=== PATIENT | female | born 1950 | race African-American/Black ===

== ENCOUNTER 2018-03-23 10:39 | Inpatient (IN) | payer OTHER ==
[2018-03-23 12:15] VITALS: BMI 24.0
--- NOTE | 2018-03-23 13:33 | HP ---
CIWA Score Nausea/Vomitin Muscle Tremors: 3 Anxiety: 2 Agitation: 3 Paroxysmal Sweats: 2 Orientation: 0-Oriented Tacttile Disturbances: 0-None Auditory Disturbances: 0-None Visual Disturbances: 0-None Headache: 2-Mild CIWA-Ar Total Score: 14 - Admission Criteria OASAS Guidelines: Admission for Medically Managed Detox: Requires at least one of the followin. CIWA greater than 12 2. Seizures within the past 24 hours 3. Delirium tremens within the past 24 hours 4. Hallucinations within the past 24 hours 5. Acute intervention needed for co occurring medical disorder 6. Acute intervention needed for co occurring psychiatric disorder 7. Severe withdrawal that cannot be handled at a lower level of care (continued vomiting, continued diarrhea, abnormal vital signs) requiring intravenous medication and/or fluids 8. Admission ROS [facility] Chief Complaint: ETOH WITHDRAWAL SX AND COCAINE DEPENDENCE. Allergies/Adverse Reactions: Allergies Allergy/AdvReac Type Severity Reaction Status Date / Time fluconazole Allergy Severe Hives Verified 03/23/18 12:30 sulfamethoxazole Allergy Severe Hives Verified 03/23/18 12:30 [From Bactrim] trimethoprim [From Bactrim] Allergy Severe Hives Verified 03/23/18 12:30 History of Present Illness: PATIENT PRESENTS FOR ETOH WITHDRAWAL SX AND COCAINE DEPENDENCE. PATIENT STARTED DRINKING AT AGE 9 AND LAST DRINK 2-3 HOURS AGO TODAY. PATIENT DRINKS 15 (16 OUNCE BEERS DAILY) MIXED WITH VODKA. ALSO HAS HX OF SMOKING COCAINE, ONCE IN A WHILE WHEN AVAILABLE. +HX OF BLACKOUTS, FALLS. DENIES H/O SEIZURES. PATIENT IS A PATIENT AT [facility], RELAPSED 2 MONTHS AGO. PREVIOUS DETOX ADMISSION IN 2011. PATIENT PMH INCLUDES HIV+( COMPLIANT WITH MEDICATION AND HAS OWN MEDS), HIP PAIN AND DEPRESSION/ANXIETY. DENIES SI/HI, +SUICIDE ATTEMPTS BY CUTTING WRISTS, YEARS AGO. Exam Limitations: No Limitations - Ebola screening Have you traveled outside of the country in the last 21 days: No Have you had contact with anyone from an Ebola affected area: No Have you been sick,other than usual withdrawal symptoms: No Do you have a fever: No - Review of Systems Constitutional: Night Sweats, Changes in sleep EENT: reports: No Symptoms Reported Respiratory: reports: No Symptoms reported Cardiac: reports: No Symptoms Reported GI: reports: Diarrhea, Nausea, Poor Appetite, Poor Fluid Intake, Abdominal cramping : reports: No Symptoms Reported Musculoskeletal: reports: Back Pain, Joint Pain Integumentary: reports: Sweating Neuro: reports: Headache, Numbness, Tingling, Tremors Endocrine: reports: No Symptoms Reported Hematology: reports: No Symptoms Reported Psychiatric: reports: Orientated x3, Anxious, Depressed Patient History - Patient Medical History Hx Anemia: Yes Hx Asthma: No Hx Chronic Obstructive Pulmonary Disease (COPD): No Hx Cancer: No Hx Cardiac Disorders: Yes (Angina) Hx Congestive Heart Failure: No Hx Hypertension: No Hx Hypercholesterolemia: No Hx Pacemaker: No HX Cerebrovascular Accident: No Hx Seizures: No Hx Dementia: No Hx Diabetes: No Hx Gastrointestinal Disorders: No Hx Liver Disease: No Hx Genitourinary Disorders: No Hx Sexually Transmitted Disorders: Yes (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) Hx Renal Disease (ESRD): No Hx Thyroid Disease: No Hx Human Immunodeficiency Virus (HIV): Yes (since 1994) Hx Depression: Yes Hx Suicide Attempt: Yes (3 times by cuttig wrist) Hx Bipolar Disorder: Yes Hx Schizophrenia: No - Patient Surgical History Past Surgical History: Yes Hx Neurologic Surgery: No Hx Cataract Extraction: No Hx Cardiac Surgery: No Hx Lung Surgery: No Hx Breast Surgery: No Hx Breast Biopsy: No Hx Abdominal Surgery: No Hx Appendectomy: No Hx Cholecystectomy: No Hx Genitourinary Surgery: No Hx Section: No Hx Orthopedic Surgery: No Hx Hysterectomy: No Other Surgical History: tonsillectomy at age of [age] years old Anesthesia Reaction: No - PPD History Previous Implant?: Yes Documented Results: Negative w/o proof Date: 03/20/12 PPD to be Administered?: Yes - Reproductive History Patient : No - Smoking Cessation Smoking history: Current every day smoker Have you smoked in the past 12 months: Yes Aproximately how many cigarettes per day: 10 Cigars Per Day: 0 Hx Chewing Tobacco Use: No Initiated information on smoking cessation: Yes 'Breaking Loose' booklet given: 03/23/18 - Substance & Tx. History Hx Alcohol Use: Yes Hx Substance Use: Yes Substance Use Type: Alcohol, Cocaine - Substances Abused Alcohol Route: Oral Frequency: Daily Amount used: 2 pints of vodka, 20 16oz cans of beers Age of first use: 9 Date of Last Use: 03/23/18 Cocaine Route: Smoking Frequency: Daily Amount used: 5 bags Age of first use: 19 Date of Last Use: 03/21/18 Family Disease History - Family Disease History Family Disease History: Other: Father (ALCOHOLISM, ), Sister (, ALCOHOLISM) Admission Physical Exam [facility] - Vital Signs Vital Signs: Vital Signs - 24 hr 03/23/18 12:10 Temperature 97.0 F L Pulse Rate 91 H Respiratory 20 Rate Blood Pressure 105/69 - Physical General Appearance: Yes: No Apparent Distress, Nourished, Appropriately Dressed , Tremorous, Anxious HEENTM: Yes: EOMI, Hearing grossly Normal, Normal ENT Inspection, Normocephalic , Normal Voice, DARIAN, Pharynx Normal Respiratory: Yes: Chest Non-Tender, Lungs Clear, Normal Breath Sounds, No Respiratory Distress, No Accessory Muscle Use Neck: Yes: No masses,lesions,Nodules, Supple, Trachea in good position Breast: Yes: Breast Exam Deferred Cardiology: Yes: Regular Rhythm, Regular Rate, S1, S2 Abdominal: Yes: Normal Bowel Sounds, Non Tender, Soft Genitourinary: Yes: Within Normal Limits Back: Yes: Normal Inspection, Muscle Spasm Musculoskeletal: Yes: full range of Motion, Gait Steady, Joint Stiffness, Muscle Pain Extremities: Yes: Normal Inspection, Normal Range of Motion, Non-Tender, Tremors Neurological: Yes: child care centre director II-XII NML intact, Fully Oriented, Alert, Motor Strength 5/5, Normal Response, Numbness, Depressed Affect Integumentary: Yes: Normal Color, Warm, Moist Cleared for Admission [facility] - Detox or Rehab [facility] Level of Care: Medically Managed Detox Regimen/Protocol: Librium [facility] Breath Alcohol Content Breath Alcohol Content: 0 Urine Pregancy Test - Result Urine Test Results: Negative- NO Line Present Urine Drug Screen - Results Drug Screen Negative: No Urine Drug Screen Results: NITISH-Cocaine
[2018-03-23] MEDS ORDERED: guaiFENesin/D-METHORPHAN HB 10 ML UNIT-DOSE CUPS PO PRN (13:44)
[2018-03-23] MEDS ORDERED: MENTHOL/PHENOL 1 EACH UD MM PRN (13:44)
[2018-03-23] MEDS ORDERED: IBUPROFEN 400 MG TABLET (FP) PO PRN (13:44)
[2018-03-23] MEDS ORDERED: ACETAMINOPHEN 325 MG TABLET (FP) PO PRN (13:44)
[2018-03-23] MEDS ORDERED: MAGNESIUM CITRATE 300 ML BOTTLE PO PRN (13:44)
[2018-03-23] MEDS ORDERED: LOPERAMIDE HCL 2 MG CAPSULE PO PRN (13:44)
[2018-03-23] MEDS ORDERED: hydrOXYzine PAMOATE 50 MG CAPSULE (FP) PO PRN (13:44)
[2018-03-23] MEDS ORDERED: NICOTINE POLACRILEX 2 MG GUM BUC PRN (13:44)
[2018-03-23] MEDS ORDERED: MAG HYDROX/AL HYDROX/SIMETH 30 ML UNIT-DOSE CUP PO PRN (13:44)
[2018-03-23] MEDS ORDERED: P-EPHED 60MG/TRIPROLIDI 2.5MG TABLET PO PRN (13:44)
[2018-03-23] MEDS ORDERED: MAGNESIUM HYDROX 2400MG/30ML ORAL SUSPENSION 30 ML CUP PO PRN (13:44)
[2018-03-23] MEDS: chlordiazePOXIDE HCL 25 MG CAPSULE PO PRN (15:41)
--- NOTE | 2018-03-23 15:45 | EKG ---
Test Reason : Blood Pressure : / mmHG Vent. Rate : 079 BPM Atrial Rate : 079 BPM P-R Int : 136 ms QRS Dur : 102 ms QT Int : 404 ms P-R-T Axes : 068 047 069 degrees QTc Int : 463 ms NORMAL SINUS RHYTHM NORMAL ECG NO PREVIOUS ECGS AVAILABLE Confirmed by ARIE ESCOBAR, YOUSIF ([id number]) on 03/23/2018 3:44:53 PM Referred By: Confirmed By:YOUSIF SARGENT MD
[2018-03-23] MEDS: chlordiazePOXIDE HCL 25 MG CAPSULE PO SCH ×2 (17:24→22:15)
[2018-03-23] MEDS ORDERED: MELATONIN 5 MG TABLETS PO PRN (22:00)
[2018-03-23] MEDS: THIAMINE HCL 100 MG TABLET (FP) PO SCH (22:15)
[2018-03-23] MEDS: GABAPENTIN 300 MG CAPSULE (FP) PO SCH (22:15)
[2018-03-23 23:25] LABS: URINE APPEARANCE CLEAR; URINE BILIRUBIN NEGATIVE (<2.0 mg/dL); URINE COLOR LTYELLOW; URINE GLUCOSE (UA) NEGATIVE (NEGATIVE); URINE KETONE NEGATIVE (NEGATIVE); URINE LEUK ESTERASE 1+ (NEGATIVE); URINE NITRITE NEGATIVE (NEGATIVE); URINE PROTEIN NEGATIVE (NEGATIVE); URINE UROBILINOGEN NEGATIVE mg/dL (0.2-1.0)
[2018-03-23 23:29] LABS: EPI CELLS RARE /HPF (FEW); URINE MUCUS RARE
[2018-03-24] MEDS: chlordiazePOXIDE HCL 25 MG CAPSULE PO SCH ×4 (06:12→22:22)
--- NOTE | 2018-03-24 09:51 | CONSULT ---
[facility] Psychiatric Consult - Data Date of interview: 03/24/18 Admission source: [facility] Identifying data: Patient is a 68 year old single female, without children, unemployed, and is currently homeless. This is patient's first admission to detox at [facility]. Patient admitted to for alcohol and cocaine dependence. Substance Abuse History: Smoking Cessation. Smoking history: Current every day smoker. Have you smoked in the past 12 months: Yes. Aproximately how many cigarettes per day: 10. Cigars Per Day: 0. Hx Chewing Tobacco Use: No. Initiated information on smoking cessation: Yes. 'Breaking Loose' booklet given : 03/23/18. - Substance & Tx. History. Hx Alcohol Use: Yes. Hx Substance Use : Yes. Substance Use Type: Alcohol, Cocaine. - Substances Abused. Alcohol. Route: Oral. Frequency: Daily. Amount used: 2 pints of vodka, 20 16oz cans of beers. Age of first use: 9. Date of Last Use: 03/23/18. Cocaine. Route: Smoking. Frequency: Daily. Amount used: 5 bags. Age of first use: 19. Date of Last Use: 03/21/18 Medical History: Aneima, Angina, h/o syphyllis, tonsillectomy, HIV Psychiatric History: Patient reports h/o one psychiatric hospitalization in 2011 at [facility] for depression. Outpatient psychiatric services was provided at the [facility] one year ago. Patient reports h/o nonadherence to outpatient department. States she was prescribed trazodone, prozac, and zoloft. She has not accepted medication in one year. Patient reports h/o multiple suicide attempts. At present, she reports feeling tired and is requesting a low dose of trazodone for insomnia. Physical/Sexual Abuse/Trauma History: denies. Mental Status Exam - Mental Status Exam Alert and Oriented to: Time, Place, Person Cognitive Function: Good Patient Appearance: Well Groomed Mood: Euthymic Affect: Mood Congruent Patient Behavior: Cooperative Speech Pattern: Appropriate Voice Loudness: Moderately Soft/Quiet Thought Process: Intact, Goal Oriented Thought Disorder: Not Present Hallucinations: Denies Suicidal Ideation: Denies Homicidal Ideation: Denies Insight/Judgement: Poor Sleep: Poorly Appetite: Fair Muscle strength/Tone: Normal Gait/Station: Normal Psychiatric Findings - Problem List (Johnson 1, 2,3) (1) Alcohol dependence with uncomplicated withdrawal Current Visit: Yes Status: Acute (2) Cocaine dependence Current Visit: No Status: Chronic (3) Substance induced mood disorder Current Visit: Yes Status: Acute (4) Insomnia Current Visit: Yes Status: Acute - Initial Treatment Plan Initial Treatment Plan: Psychoeducation provided. Detoxification in progress. Trazodone 25mg qhs ordered. Benefits and side effects discussed. Verbal consent given.
[2018-03-24 10:10] LABS: HEMATOCRIT 35.5 % (32.4-45.2); HEMOGLOBIN 11.5 GM/dL (10.7-15.3); MCHC 32.4 g/dl (32.0-36.0); MEAN CELL VOLUME 77.1 fl (80-96); MEAN PLT VOLUME 9.6 fl (7.5-11.1); PLATELET COUNT 240 K/MM3 (134-434); RDW 14.8 % (11.6-15.6)
[2018-03-24] MEDS: PATIENT'S OWN MEDICATION (NON-FORMULARY) (Bictegrav/Emtricit/Tenofov Ala [Biktarvy 50-200- PO SCH (10:50)
[2018-03-24] MEDS: NICOTINE 14 MG/24 HOURS TOPICAL PATCH TD SCH (10:50)
[2018-03-24] MEDS: GABAPENTIN 300 MG CAPSULE (FP) PO SCH ×2 (10:50→21:44)
[2018-03-24] MEDS: ASPIRIN COATED 81 MG TABLET.EC PO SCH (10:50)
[2018-03-24] MEDS: PRENATAL VITAMINS W/ FOLIC ACID TABLET (FP) PO SCH (10:50)
[2018-03-24 11:16] LABS: ALBUMIN 2.7 g/dl (3.4-5.0); ALK PHOS 89 U/L (45-117); ANION GAP 6 MMOL/L (8-16); BILIRUBIN,TOTAL 0.2 mg/dL (0.2-1); BLOOD UREA NITROGEN 12 mg/dL (7-18); CALCIUM 8.4 mg/dL (8.5-10.1); CHLORIDE 108 mmol/L (98-107); CO2 28 mmol/L (21-32); CREATININE 0.8 mg/dL (0.55-1.3); GLUCOSE,RANDOM 90 mg/dL (74-106); POTASSIUM 3.9 mmol/L (3.5-5.1); SGOT/AST 24 U/L (15-37); SGPT/ALT 18 U/L (13-61); SODIUM 142 mmol/L (136-145); TOT PROT 6.6 g/dl (6.4-8.2)
[2018-03-24] MEDS ORDERED: FLU VACCINE QUAD 60 MCG/0.5 ML (MDV 18-19) IM ONE (12:00)
--- NOTE | 2018-03-24 15:35 | PN ---
[facility] CIWA - CIWA Score Nausea/Vomitin-Mild Nausea/No Vomiting Muscle Tremors: 4-Moderate,w/Arms Extend Anxiety: 2 Agitation: 3 Paroxysmal Sweats: 1-Minimal Palms Moist Orientation: 1-Uncertain about Date Tacttile Disturbances: 0-None Auditory Disturbances: 0-None Visual Disturbances: 0-None Headache: 0-None Present CIWA-Ar Total Score: 12 S Progress Note (SOAP) Subjective: tremor sweat trouble sleep at night restlessness Objective: 03/24/18 15:35 Vital Signs Temperature 97.4 F L 03/24/18 13:44 Pulse Rate 75 03/24/18 13:44 Respiratory Rate 18 03/24/18 13:44 Blood Pressure 101/66 03/24/18 13:44 O2 Sat by Pulse Oximetry (%) Laboratory Last Values WBC 4.0 K/mm3 (4.0-10.0) 03/24/18 07:00 RBC 4.60 M/mm3 (3.60-5.2) 03/24/18 07:00 Hgb 11.5 GM/dL (10.7-15.3) 03/24/18 07:00 Hct 35.5 % (32.4-45.2) 03/24/18 07:00 MCV 77.1 fl (80-96) L 03/24/18 07:00 MCH 25.0 pg (25.7-33.7) L 03/24/18 07:00 MCHC 32.4 g/dl (32.0-36.0) 03/24/18 07:00 RDW 14.8 % (11.6-15.6) D 03/24/18 07:00 Plt Count 240 K/MM3 (134-434) 03/24/18 07:00 MPV 9.6 fl (7.5-11.1) 03/24/18 07:00 Sodium 142 mmol/L (136-145) 03/24/18 07:00 Potassium 3.9 mmol/L (3.5-5.1) 03/24/18 07:00 Chloride 108 mmol/L (98-107) H 03/24/18 07:00 Carbon Dioxide 28 mmol/L (21-32) 03/24/18 07:00 Anion Gap 6 MMOL/L (8-16) L 03/24/18 07:00 BUN 12 mg/dL (7-18) 03/24/18 07:00 Creatinine 0.8 mg/dL (0.55-1.3) 03/24/18 07:00 Creat Clearance w eGFR > 60 (>60) 03/24/18 07:00 Random Glucose 90 mg/dL (74-106) 03/24/18 07:00 Calcium 8.4 mg/dL (8.5-10.1) L 03/24/18 07:00 Total Bilirubin 0.2 mg/dL (0.2-1) 03/24/18 07:00 AST 24 U/L (15-37) 03/24/18 07:00 ALT 18 U/L (13-61) 03/24/18 07:00 Alkaline Phosphatase 89 U/L (45-117) 03/24/18 07:00 Total Protein 6.6 g/dl (6.4-8.2) 03/24/18 07:00 Albumin 2.7 g/dl (3.4-5.0) L 03/24/18 07:00 Urine Color Ltyellow 03/23/18 23:10 Urine Appearance Clear 03/23/18 23:10 Urine pH 5.0 (5.0-8.0) D 03/23/18 23:10 Ur Specific [place] 1.009 (1.010-1.035) L 03/23/18 23:10 Urine Protein Negative (NEGATIVE) 03/23/18 23:10 Urine Glucose (UA) Negative (NEGATIVE) 03/23/18 23:10 Urine Ketones Negative (NEGATIVE) 03/23/18 23:10 Urine Blood Negative (NEGATIVE) 03/23/18 23:10 Urine Nitrite Negative (NEGATIVE) 03/23/18 23:10 Urine Bilirubin Negative (<2.0 mg/dL) 03/23/18 23:10 Urine Urobilinogen Negative mg/dL (0.2-1.0) 03/23/18 23:10 Ur Leukocyte Esterase 1+ (NEGATIVE) H 03/23/18 23:10 Urine WBC (Auto) 1 /hpf (3-5) 03/23/18 23:10 Urine RBC (Auto) <1 /hpf (0-3) 03/23/18 23:10 Ur Epithelial Cells Rare /HPF (FEW) 03/23/18 23:10 Urine Mucus Rare 03/23/18 23:10 lab noted Assessment: 03/24/18 15:36 withdrawal sx Plan: continue detox
[2018-03-24] MEDS: THIAMINE HCL 100 MG TABLET (FP) PO SCH (21:42)
[2018-03-24] MEDS: chlordiazePOXIDE HCL 25 MG CAPSULE PO PRN (21:43)
[2018-03-24] MEDS: traZODone HCL 50 MG TABLET (FP) PO SCH (21:43)
[2018-03-25] MEDS: chlordiazePOXIDE HCL 25 MG CAPSULE PO SCH ×2 (06:18→10:30)
[2018-03-25] MEDS: GABAPENTIN 300 MG CAPSULE (FP) PO SCH ×2 (10:29→22:20)
[2018-03-25] MEDS: PRENATAL VITAMINS W/ FOLIC ACID TABLET (FP) PO SCH (10:29)
[2018-03-25] MEDS: ASPIRIN COATED 81 MG TABLET.EC PO SCH (10:29)
[2018-03-25] MEDS: NICOTINE 14 MG/24 HOURS TOPICAL PATCH TD SCH (10:30)
[2018-03-25] MEDS: chlordiazePOXIDE HCL 25 MG CAPSULE PO PRN (10:30)
[2018-03-25] MEDS: PATIENT'S OWN MEDICATION (NON-FORMULARY) (Bictegrav/Emtricit/Tenofov Ala [Biktarvy 50-200- PO SCH (10:30)
--- NOTE | 2018-03-25 14:14 | PN ---
S CIWA - CIWA Score Nausea/Vomitin Muscle Tremors: 1-None Visible, but [place] Anxiety: 3 Agitation: 3 Paroxysmal Sweats: 1-Minimal Palms Moist Orientation: 0-Oriented Tacttile Disturbances: 2-Mild Itch/Numbness/Burn Auditory Disturbances: 0-None Visual Disturbances: 0-None Headache: 0-None Present CIWA-Ar Total Score: 12 BHS Progress Note (SOAP) Subjective: PATIENT C/O RESTLESSNESS, ANXIETY, BODY ACHES, SLEEP DISTURNBANCE AND NIGHT SWEATS. Objective: 03/25/18 14:11 Vital Signs Temperature 98.3 F 03/25/18 13:53 Pulse Rate 83 03/25/18 13:53 Respiratory Rate 18 03/25/18 13:53 Blood Pressure 98/65 03/25/18 13:53 O2 Sat by Pulse Oximetry (%) Laboratory Tests 03/23/18 03/24/18 03/24/18 23:10 07:00 07:00 WBC 4.0 RBC 4.60 Hgb 11.5 Hct 35.5 MCV 77.1 L MCH 25.0 L MCHC 32.4 RDW 14.8 D Plt Count 240 MPV 9.6 Sodium 142 Potassium 3.9 Chloride 108 H Carbon Dioxide 28 Anion Gap 6 L BUN 12 Creatinine 0.8 Creat Clearance w eGFR > 60 Random Glucose 90 Calcium 8.4 L Total Bilirubin 0.2 AST 24 ALT 18 Alkaline Phosphatase 89 Total Protein 6.6 Albumin 2.7 L Urine Color Ltyellow Urine Appearance Clear Urine pH 5.0 D Ur Specific [place] 1.009 L Urine Protein Negative Urine Glucose (UA) Negative Urine Ketones Negative Urine Blood Negative Urine Nitrite Negative Urine Bilirubin Negative Urine Urobilinogen Negative Ur Leukocyte Esterase 1+ H Urine WBC (Auto) 1 Urine RBC (Auto) <1 Ur Epithelial Cells Rare Urine Mucus Rare RPR Titer 03/24/18 07:00 WBC RBC Hgb Hct MCV MCH MCHC RDW Plt Count MPV Sodium Potassium Chloride Carbon Dioxide Anion Gap BUN Creatinine Creat Clearance w eGFR Random Glucose Calcium Total Bilirubin AST ALT Alkaline Phosphatase Total Protein Albumin Urine Color Urine Appearance Urine pH Ur Specific [place] Urine Protein Urine Glucose (UA) Urine Ketones Urine Blood Urine Nitrite Urine Bilirubin Urine Urobilinogen Ur Leukocyte Esterase Urine WBC (Auto) Urine RBC (Auto) Ur Epithelial Cells Urine Mucus RPR Titer Nonreactive PE: SKIN WARM, +MOIST PALMS ALERT AND ORIENTED X 3 EXT AMB AD STEPHANIA BUT GUARDED DUE TO BODY ACHES, NO EDEMA, MILD TREMORS ANXIOUS, IRRITABLE Assessment: 03/25/18 14:13 A/P; WITHDRAWAL SX Plan: CONTINUE DETOX ENCOURAGE ORAL FLUIDS CONTINUE TO MONITOR CLINICALLY CANE ORDERED FOR AMBULATION SUPPORT
[2018-03-25] MEDS: chlordiazePOXIDE 5 MG CAPSULE PO SCH ×2 (16:54→22:19)
[2018-03-25] MEDS: traZODone HCL 50 MG TABLET (FP) PO SCH (22:19)
[2018-03-25] MEDS: THIAMINE HCL 100 MG TABLET (FP) PO SCH (22:19)
[2018-03-26] MEDS: chlordiazePOXIDE 5 MG CAPSULE PO SCH ×2 (06:07→10:49)
[2018-03-26 06:24] VITALS: BP 93/62; PULSE 64; TEMP 98
[2018-03-26] MEDS: ASPIRIN COATED 81 MG TABLET.EC PO SCH (10:49)
[2018-03-26] MEDS: PRENATAL VITAMINS W/ FOLIC ACID TABLET (FP) PO SCH (10:49)
[2018-03-26] MEDS: PATIENT'S OWN MEDICATION (NON-FORMULARY) (Bictegrav/Emtricit/Tenofov Ala [Biktarvy 50-200- PO SCH (10:49)
[2018-03-26] MEDS: NICOTINE 14 MG/24 HOURS TOPICAL PATCH TD SCH (10:49)
[2018-03-26] MEDS: GABAPENTIN 300 MG CAPSULE (FP) PO SCH (10:49)
--- NOTE | 2018-03-26 11:29 | PN ---
[facility] Progress Note Note: PT SIGNED OUT AMA FOR PERSONAL REASONS AND STATES SHE WILL CALL [facility] [address] AND FOLLOW UP WITH HER MEDICAL PROVIDERS AT [facility] FOR MEDICAL MANAGEMENT. ALERT O X 3. NAD. Vital Signs 03/26/18 06:23 Temperature 98 F Pulse Rate 64 Respiratory 16 Rate Blood Pressure 93/62 Laboratory Tests 03/23/18 03/24/18 03/24/18 23:10 07:00 07:00 WBC 4.0 RBC 4.60 Hgb 11.5 Hct 35.5 MCV 77.1 L MCH 25.0 L MCHC 32.4 RDW 14.8 D Plt Count 240 MPV 9.6 Sodium 142 Potassium 3.9 Chloride 108 H Carbon Dioxide 28 Anion Gap 6 L BUN 12 Creatinine 0.8 Creat Clearance w eGFR > 60 Random Glucose 90 Calcium 8.4 L Total Bilirubin 0.2 AST 24 ALT 18 Alkaline Phosphatase 89 Total Protein 6.6 Albumin 2.7 L Urine Color Ltyellow Urine Appearance Clear Urine pH 5.0 D Ur Specific [place] 1.009 L Urine Protein Negative Urine Glucose (UA) Negative Urine Ketones Negative Urine Blood Negative Urine Nitrite Negative Urine Bilirubin Negative Urine Urobilinogen Negative Ur Leukocyte Esterase 1+ H Urine WBC (Auto) 1 Urine RBC (Auto) <1 Ur Epithelial Cells Rare Urine Mucus Rare RPR Titer 03/24/18 07:00 WBC RBC Hgb Hct MCV MCH MCHC RDW Plt Count MPV Sodium Potassium Chloride Carbon Dioxide Anion Gap BUN Creatinine Creat Clearance w eGFR Random Glucose Calcium Total Bilirubin AST ALT Alkaline Phosphatase Total Protein Albumin Urine Color Urine Appearance Urine pH Ur Specific [place] Urine Protein Urine Glucose (UA) Urine Ketones Urine Blood Urine Nitrite Urine Bilirubin Urine Urobilinogen Ur Leukocyte Esterase Urine WBC (Auto) Urine RBC (Auto) Ur Epithelial Cells Urine Mucus RPR Titer Nonreactive PLAN:PT SIGNED OUT AMA
--- NOTE | 2018-03-26 11:29 | DS ---
[facility] Detox Discharge Summary Admission Date: 03/23/18 Discharge Date: 03/26/18 - History Present History: Alcohol Dependence Pertinent Past History: PLEASE SEE DX BELOW - Physical Exam Results Vital Signs: Vital Signs Temperature 98 F 03/26/18 06:23 Pulse Rate 64 03/26/18 06:23 Respiratory Rate 16 03/26/18 06:23 Blood Pressure 93/62 03/26/18 06:23 O2 Sat by Pulse Oximetry (%) Pertinent Admission Physical Exam Findings: WITHDRAWAL SX Laboratory Tests 03/23/18 03/24/18 03/24/18 23:10 07:00 07:00 WBC 4.0 RBC 4.60 Hgb 11.5 Hct 35.5 MCV 77.1 L MCH 25.0 L MCHC 32.4 RDW 14.8 D Plt Count 240 MPV 9.6 Sodium 142 Potassium 3.9 Chloride 108 H Carbon Dioxide 28 Anion Gap 6 L BUN 12 Creatinine 0.8 Creat Clearance w eGFR > 60 Random Glucose 90 Calcium 8.4 L Total Bilirubin 0.2 AST 24 ALT 18 Alkaline Phosphatase 89 Total Protein 6.6 Albumin 2.7 L Urine Color Ltyellow Urine Appearance Clear Urine pH 5.0 D Ur Specific [place] 1.009 L Urine Protein Negative Urine Glucose (UA) Negative Urine Ketones Negative Urine Blood Negative Urine Nitrite Negative Urine Bilirubin Negative Urine Urobilinogen Negative Ur Leukocyte Esterase 1+ H Urine WBC (Auto) 1 Urine RBC (Auto) <1 Ur Epithelial Cells Rare Urine Mucus Rare RPR Titer 03/24/18 07:00 WBC RBC Hgb Hct MCV MCH MCHC RDW Plt Count MPV Sodium Potassium Chloride Carbon Dioxide Anion Gap BUN Creatinine Creat Clearance w eGFR Random Glucose Calcium Total Bilirubin AST ALT Alkaline Phosphatase Total Protein Albumin Urine Color Urine Appearance Urine pH Ur Specific [place] Urine Protein Urine Glucose (UA) Urine Ketones Urine Blood Urine Nitrite Urine Bilirubin Urine Urobilinogen Ur Leukocyte Esterase Urine WBC (Auto) Urine RBC (Auto) Ur Epithelial Cells Urine Mucus RPR Titer Nonreactive - Treatment Hospital Course: Discharged Condition Good - Medication Discharge Medications: Ambulatory Orders Aspirin [Aspirin EC] 81 mg PO DAILY 03/23/18 Bictegrav/Emtricit/Tenofov Ala [Biktarvy 50-200-25 mg Tablet] 1 each PO DAILY Fluoxetine HCl [Prozac -] 20 mg PO DAILY 12/05/18 Gabapentin 300 mg PO BID 03/23/18 Sertraline HCl [Zoloft -] 25 mg PO DAILY 03/23/18 traZODone HCL [Desyrel -] 150 mg PO HS 03/23/18 - Diagnosis (1) Alcohol dependence with uncomplicated withdrawal Current Visit: Yes Status: Acute (2) HIV positive Current Visit: Yes Status: Chronic (3) Peripheral neuropathic pain Current Visit: Yes Status: Chronic (4) Cocaine dependence Current Visit: Yes Status: Acute - AMA Did Patient Leave Against Medical Advice: Yes
[2018-03-26] MEDS ORDERED: chlordiazePOXIDE HCL 10 MG CAPSULE PO SCH (17:00)
== END 2018-03-26 10:04 | disposition left against medical advice (07) | DRG 894 ==
LOC: YASAS 10:39 → Y3N 14:26
PROC: HZ2ZZZZ Detoxification Services for Substance Abuse Treatment (ICD-10-PCS; principal; 2018-03-23)
DX: F10.230 Alcohol dependence with withdrawal, uncomplicated (principal); F14.20 Cocaine dependence, uncomplicated; F31.9 Bipolar disorder, unspecified; F32.9 Major depressive disorder, single episode, unspecified; F19.24 Other psychoactive substance dependence with psychoactive substance-induced mood disorder; Z21 Asymptomatic human immunodeficiency virus [HIV] infection status; M79.2 Neuralgia and neuritis, unspecified; G47.00 Insomnia, unspecified; I20.9 Angina pectoris, unspecified; Z86.2 Personal history of diseases of the blood and blood-forming organs and certain disorders involving the immune mechanism; Z86.19 Personal history of other infectious and parasitic diseases; Z88.2 Allergy status to sulfonamides; Z88.8 Allergy status to other drugs, medicaments and biological substances; Z91.5 Personal history of self-harm
CPT/HCPCS: 36415; 80053; 81003; 81015; 85027; 86593; 90688; 93005; 93010; G0008

== ENCOUNTER 2018-07-02 09:53 | Inpatient (IN) | payer OTHER ==
[2018-07-02 10:37] VITALS: BMI 23.2
--- NOTE | 2018-07-02 11:52 | HP ---
CIWA Score Nausea/Vomitin Muscle Tremors: 4-Moderate,w/Arms Extend Anxiety: 4-Mod. Anxious/Guarded Agitation: 1-Slight > Activity Paroxysmal Sweats: 1-Minimal Palms Moist Orientation: 2-Disoriented Date<2 days Tacttile Disturbances: 1-Very Mild Itch/Numbness Auditory Disturbances: 0-None Visual Disturbances: 0-None Headache: 1-Very Mild CIWA-Ar Total Score: 17 - Admission Criteria OASAS Guidelines: Admission for Medically Managed Detox: Requires at least one of the followin. CIWA greater than 12 2. Seizures within the past 24 hours 3. Delirium tremens within the past 24 hours 4. Hallucinations within the past 24 hours 5. Acute intervention needed for co occurring medical disorder 6. Acute intervention needed for co occurring psychiatric disorder 7. Severe withdrawal that cannot be handled at a lower level of care (continued vomiting, continued diarrhea, abnormal vital signs) requiring intravenous medication and/or fluids 8. Patient presents the following: CIWA greater than 12 Admission Criteria Met: Admission criteria met Admission ROS S - HPI Chief Complaint: I have to stop, it's killing me, I'm HIV, after this I'm done, I'm a wreck, I keep getting weaker. Allergies/Adverse Reactions: Allergies Allergy/AdvReac Type Severity Reaction Status Date / Time fluconazole Allergy Severe Hives Verified 07/02/18 12:01 sulfamethoxazole Allergy Severe Hives Verified 07/02/18 12:01 [From Bactrim] trimethoprim [From Bactrim] Allergy Severe Hives Verified 07/02/18 12:01 History of Present Illness: 68 yo woman here for detox from alcohol, also using crack. Urine tox + bzo - was treated last night at [facility] where she was taken when 'found on the ground' and referred here for detox. No seizures but does have black outs and drinks starting 'as soon as I'm awake'. This is one of multiple attempts at treatment. Patient is also HIV+. Exam Limitations: Clinical Condition - Ebola screening Have you traveled outside of the country in the last 21 days: No (N) Have you had contact with anyone from an Ebola affected area: No Have you been sick,other than usual withdrawal symptoms: No Do you have a fever: No - Review of Systems Constitutional: Loss of Appetite, Night Sweats, Changes in sleep, Weakness EENT: reports: No Symptoms Reported Respiratory: reports: No Symptoms reported Cardiac: reports: No Symptoms Reported GI: reports: Nausea, Poor Appetite : reports: Frequency Musculoskeletal: reports: Back Pain, Muscle Pain Integumentary: reports: Dryness Neuro: reports: Headache, Tremors Endocrine: reports: No Symptoms Reported Hematology: reports: No Symptoms Reported Psychiatric: reports: Judgement Intact, Mood/Affect Appropiate, Anxious Other Systems: Reviewed and Negative Patient History - Patient Medical History Hx Anemia: No Hx Asthma: No Hx Chronic Obstructive Pulmonary Disease (COPD): No Hx Cancer: No Hx Cardiac Disorders: Yes (Angina) Hx Congestive Heart Failure: No Hx Hypertension: No Hx Hypercholesterolemia: No Hx Pacemaker: No HX Cerebrovascular Accident: No Hx Seizures: No Hx Dementia: No Hx Diabetes: No Hx Gastrointestinal Disorders: No Hx Liver Disease: No Hx Genitourinary Disorders: No Hx Sexually Transmitted Disorders: Yes (syphillis in her 20's) Hx Renal Disease (ESRD): No Hx Thyroid Disease: No Hx Human Immunodeficiency Virus (HIV): Yes (since 1994 (off meds x 1 year)) Hx Hepatitis C: No Hx Depression: Yes (hospitalized 'years ago' at [facility]) Hx Suicide Attempt: Yes (3 times by cutting wrist) Hx Bipolar Disorder: Yes Hx Schizophrenia: Yes (hears voices) - Patient Surgical History Past Surgical History: Yes Hx Neurologic Surgery: No Hx Cataract Extraction: No Hx Cardiac Surgery: No Hx Lung Surgery: No Hx Breast Surgery: No Hx Breast Biopsy: No Hx Abdominal Surgery: No Hx Appendectomy: No Hx Cholecystectomy: No Hx Genitourinary Surgery: No Hx Section: No Hx Orthopedic Surgery: No Hx Hysterectomy: No Other Surgical History: tonsillectomy at age of [age] years old Anesthesia Reaction: No - PPD History Previous Implant?: Yes Documented Results: Negative w/proof Implanted On Prior [facility] Admission?: Yes Date: 03/25/18 PPD to be Administered?: Yes - Reproductive History Patient is a Female of Child Bearing Age (11 -55 yrs old): Yes - Smoking Cessation Smoking history: Current every day smoker Have you smoked in the past 12 months: Yes Aproximately how many cigarettes per day: 5 Cigars Per Day: 0 Hx Chewing Tobacco Use: No Initiated information on smoking cessation: Yes 'Breaking Loose' booklet given: 07/02/18 (give on floor) - Substance & Tx. History Hx Alcohol Use: Yes Hx Substance Use: Yes Substance Use Type: Alcohol, Cocaine Hx Substance Use Treatment: Yes (detox, rehab) - Substances Abused alcohol Route: Oral Frequency: Daily Amount used: 16 oz Age of first use: 9 Date of Last Use: 07/02/18 cocaine Route: Smoking Frequency: 1-2 times per week Amount used: $50 Age of first use: 48 Date of Last Use: 07/01/18 Family Disease History - Family Disease History Family Disease History: Other: Father (ALCOHOLISM, ), Mother (living, healthy), Brother (two - healthy), Sister (one (alchol), two living) Admission Physical Exam [facility] - Vital Signs Vital Signs: Vital Signs - 24 hr 07/02/18 10:35 Temperature 98.7 F Pulse Rate 84 Respiratory 18 Rate Blood Pressure 97/71 - Physical General Appearance: Yes: Nourished, Appropriately Dressed, Moderate Distress, Tremorous, Anxious HEENTM: Yes: EOMI, Hearing grossly Normal, Normocephalic, Normal Voice, Pharynx Normal (no thrush noted) Respiratory: Yes: Normal Breath Sounds, No Respiratory Distress Neck: Yes: No masses,lesions,Nodules Breast: Yes: Breast Exam Deferred Cardiology: Yes: Regular Rhythm, Regular Rate Abdominal: Yes: Flat, Soft Genitourinary: Yes: Frequency Back: Yes: Normal Inspection Musculoskeletal: Yes: full range of Motion, Gait Steady Extremities: Yes: Normal Capillary Refill, Normal Inspection Neurological: Yes: Alert, Motor Strength 5/5, Normal Mood/Affect, Normal Response Integumentary: Yes: Normal Color, Dry, Warm Lymphatic: Yes: Within Normal Limits - Diagnostic (1) Alcohol dependence with uncomplicated withdrawal Current Visit: Yes Status: Acute (2) Cocaine dependence Current Visit: Yes Status: Acute (3) HIV positive Current Visit: Yes Status: Chronic Cleared for Admission [facility] - Detox or Rehab [facility] Level of Care: Medically Managed Detox Regimen/Protocol: Librium [facility] Breath Alcohol Content Breath Alcohol Content: 0.130 Urine Pregancy Test - Result Urine Test Results: Negative - NO Line Present Urine Drug Screen - Results Drug Screen Negative: No Urine Drug Screen Results: NITISH-Cocaine, BZO-Benzodiazepines Inpatient Rehab Admission - Rehab Decision to Admit Inpatient rehab admission?: No
[2018-07-02] MEDS ORDERED: MELATONIN 5 MG TABLETS PO PRN (12:00)
[2018-07-02] MEDS ORDERED: BISMUTH SUBSALICYLATE 524 MG/30 ML UD PO PRN (12:00)
[2018-07-02] MEDS ORDERED: MAGNESIUM CITRATE 300 ML BOTTLE PO PRN (12:00)
[2018-07-02] MEDS ORDERED: MAGNESIUM HYDROX 2400MG/30ML ORAL SUSPENSION 30 ML CUP PO PRN (12:00)
[2018-07-02] MEDS ORDERED: METHOCARBAMOL 500 MG TABLET PO PRN (12:00)
[2018-07-02] MEDS ORDERED: MAG HYDROX/AL HYDROX/SIMETH 30 ML UNIT-DOSE CUP PO PRN (12:00)
[2018-07-02] MEDS ORDERED: IBUPROFEN 400 MG TABLET (FP) PO PRN (12:00)
[2018-07-02] MEDS ORDERED: MENTHOL/PHENOL 1 EACH UD MM PRN (12:00)
[2018-07-02] MEDS ORDERED: NICOTINE POLACRILEX 4 MG GUM BUC PRN (12:00)
[2018-07-02] MEDS ORDERED: chlordiazePOXIDE HCL 25 MG CAPSULE PO PRN (12:00)
[2018-07-02] MEDS ORDERED: hydrOXYzine PAMOATE 25 MG CAPSULE (FP) PO PRN (12:00)
[2018-07-02] MEDS ORDERED: chlordiazePOXIDE HCL 25 MG CAPSULE PO ONE (13:00)
[2018-07-02] MEDS: chlordiazePOXIDE HCL 25 MG CAPSULE PO SCH ×2 (17:16→23:31)
[2018-07-02] MEDS: THIAMINE HCL 100 MG TABLET (FP) PO SCH (23:31)
[2018-07-03] MEDS: chlordiazePOXIDE HCL 25 MG CAPSULE PO SCH ×4 (06:34→22:30)
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
[2018-07-03] MEDS: PRENATAL VITAMINS W/ FOLIC ACID TABLET (FP) PO SCH (10:18)
[2018-07-03] MEDS: SERTRALINE HCL 50 MG TABLET (FP) PO SCH (10:19)
[2018-07-03 11:23] LABS: HEMATOCRIT 34.9 % (32.4-45.2); HEMOGLOBIN 11.3 GM/dL (10.7-15.3); MCH 25.4 pg (25.7-33.7); MCHC 32.5 g/dl (32.0-36.0); MEAN PLT VOLUME 9.1 fl (7.5-11.1); PLATELET COUNT 231 K/MM3 (134-434); RBC 4.47 M/mm3 (3.60-5.2)
[2018-07-03 12:02] LABS: ALBUMIN 2.9 g/dl (3.4-5.0); ALK PHOS 80 U/L (45-117); ANION GAP 6 MMOL/L (8-16); BILIRUBIN,TOTAL 0.3 mg/dL (0.2-1); BLOOD UREA NITROGEN 8 mg/dL (7-18); CALCIUM 8.3 mg/dL (8.5-10.1); CHLORIDE 106 mmol/L (98-107); CO2 27 mmol/L (21-32); CREATININE 0.8 mg/dL (0.55-1.3); GLUCOSE,RANDOM 91 mg/dL (74-106); POTASSIUM 3.9 mmol/L (3.5-5.1); SGOT/AST 26 U/L (15-37); SGPT/ALT 18 U/L (13-61); SODIUM 139 mmol/L (136-145); TOT PROT 7.5 g/dl (6.4-8.2)
--- NOTE | 2018-07-03 13:56 | PN ---
[facility] CIWA - CIWA Score Nausea/Vomitin Muscle Tremors: 1-None Visible, but [place] Anxiety: 3 Agitation: 2 Paroxysmal Sweats: 2 Orientation: 0-Oriented Tacttile Disturbances: 0-None Auditory Disturbances: 0-None Visual Disturbances: 0-None Headache: 2-Mild CIWA-Ar Total Score: 13 [facility] Progress Note (SOAP) Subjective: fatigue, chills, interrupted sleep Assessment: 07/03/18 13:55 Vital Signs Temperature 98.2 F 07/03/18 13:48 Pulse Rate 77 07/03/18 13:48 Respiratory Rate 16 07/03/18 13:48 Blood Pressure 116/69 07/03/18 13:48 O2 Sat by Pulse Oximetry (%) Laboratory Last Values WBC 3.0 K/mm3 (4.0-10.0) L 07/03/18 07:35 RBC 4.47 M/mm3 (3.60-5.2) 07/03/18 07:35 Hgb 11.3 GM/dL (10.7-15.3) 07/03/18 07:35 Hct 34.9 % (32.4-45.2) 07/03/18 07:35 MCV 78.0 fl (80-96) L 07/03/18 07:35 MCH 25.4 pg (25.7-33.7) L 07/03/18 07:35 MCHC 32.5 g/dl (32.0-36.0) 07/03/18 07:35 RDW 15.0 % (11.6-15.6) 07/03/18 07:35 Plt Count 231 K/MM3 (134-434) 07/03/18 07:35 MPV 9.1 fl (7.5-11.1) 07/03/18 07:35 Sodium 139 mmol/L (136-145) 07/03/18 07:35 Potassium 3.9 mmol/L (3.5-5.1) 07/03/18 07:35 Chloride 106 mmol/L (98-107) 07/03/18 07:35 Carbon Dioxide 27 mmol/L (21-32) 07/03/18 07:35 Anion Gap 6 MMOL/L (8-16) L 07/03/18 07:35 BUN 8 mg/dL (7-18) 07/03/18 07:35 Creatinine 0.8 mg/dL (0.55-1.3) 07/03/18 07:35 Creat Clearance w eGFR 71.33 (>60) 07/03/18 07:35 Random Glucose 91 mg/dL (74-106) 07/03/18 07:35 Calcium 8.3 mg/dL (8.5-10.1) L 07/03/18 07:35 Total Bilirubin 0.3 mg/dL (0.2-1) 07/03/18 07:35 AST 26 U/L (15-37) 07/03/18 07:35 ALT 18 U/L (13-61) 07/03/18 07:35 Alkaline Phosphatase 80 U/L (45-117) 07/03/18 07:35 Total Protein 7.5 g/dl (6.4-8.2) 07/03/18 07:35 Albumin 2.9 g/dl (3.4-5.0) L 07/03/18 07:35 RPR Titer Nonreactive (NONREACTIVE) 07/03/18 07:35 labs noted aox3 no distress full rom ambulating in the unit withdrawal sx increase po fluids continue detox continue to monitor
[2018-07-03] MEDS: THIAMINE HCL 100 MG TABLET (FP) PO SCH (22:29)
[2018-07-03] MEDS: traZODone HCL 50 MG TABLET (FP) PO SCH (22:29)
[2018-07-04] MEDS: chlordiazePOXIDE HCL 25 MG CAPSULE PO SCH ×2 (05:40→10:22)
[2018-07-04] MEDS: PRENATAL VITAMINS W/ FOLIC ACID TABLET (FP) PO SCH (10:21)
[2018-07-04] MEDS: SERTRALINE HCL 50 MG TABLET (FP) PO SCH (10:22)
--- NOTE | 2018-07-04 11:17 | PN ---
S CIWA - CIWA Score Nausea/Vomitin-No Nausea/No Vomiting Muscle Tremors: 3 Anxiety: 3 Agitation: 3 Paroxysmal Sweats: 3 Orientation: 0-Oriented Tacttile Disturbances: 0-None Auditory Disturbances: 0-None Visual Disturbances: 0-None Headache: 0-None Present CIWA-Ar Total Score: 12 S Progress Note (SOAP) Subjective: i need my anti depression medication sweats irritable agitation Objective: 07/04/18 11:14 Vital Signs Temperature 97.7 F 07/04/18 09:25 Pulse Rate 99 H 07/04/18 09:25 Respiratory Rate 18 07/04/18 09:25 Blood Pressure 113/64 07/04/18 09:25 O2 Sat by Pulse Oximetry (%) Laboratory Tests 07/03/18 07/03/18 07/03/18 07:35 07:35 07:35 WBC 3.0 L RBC 4.47 Hgb 11.3 Hct 34.9 MCV 78.0 L MCH 25.4 L MCHC 32.5 RDW 15.0 Plt Count 231 MPV 9.1 Sodium 139 Potassium 3.9 Chloride 106 Carbon Dioxide 27 Anion Gap 6 L BUN 8 Creatinine 0.8 Creat Clearance w eGFR 71.33 Random Glucose 91 Calcium 8.3 L Total Bilirubin 0.3 AST 26 ALT 18 Alkaline Phosphatase 80 Total Protein 7.5 Albumin 2.9 L RPR Titer Nonreactive labs noted aaox3 ambulating no acute distress Assessment: 07/04/18 11:16 withdrawal sx Plan: continue detox increase fluids psych order
--- NOTE | 2018-07-04 14:50 | PN ---
Psychiatric Progress Note Vital Signs: Vital Signs Period Temp Pulse Resp BP Sys/Hanson Pulse Ox Last 24 Hr 97.7 F-98.9 F 71-99 - 106-120/64-74 Date of Session: 07/04/18 Chief Complaint:: "I want my Depakote" HPI: Patient is a 68 years od Black female with history of depression and Polysubstance(alcohol, cocaine) abuse admitted to this unit on 07/02/18 for inpatient detoxification ROS: HIV Current Medications: Active Medications Generic Name Dose Route Start Last Admin Trade Name Freq PRN Reason Stop Dose Admin Acetaminophen 650 mg 07/02/18 12:00 Tylenol - PO Q6H PRN PAIN LEVEL 4 - 6 Al Hydroxide/Mg Hydroxide 30 ml 07/02/18 12:00 Mylanta Oral Suspension - PO Q6H PRN DYSPEPSIA Bismuth Subsalicylate 524 mg 07/02/18 12:00 Pepto-Bismol - PO Q1H PRN DIARRHEA Chlordiazepoxide HCl 10 mg 07/04/18 17:00 Librium - PO 07/05/18 11:01 E9O-LER FATUMA Chlordiazepoxide HCl 10 mg 07/05/18 17:00 Librium - PO 07/06/18 17:01 Q12H FATUMA Chlordiazepoxide HCl 10 mg 07/04/18 17:00 Librium - PO 07/05/18 17:00 Q4H PRN WITHDRAWAL(CONT SUBST) Chlordiazepoxide HCl 25 mg 07/02/18 12:00 Librium - PO 07/04/18 17:00 Q4H PRN WITHDRAWAL(CONT SUBST) Eucalyptus/Menthol/Phenol/Sorbitol 1 each 07/02/18 12:00 Cepastat Lozenge - MM 07/08/18 12:00 Q4H PRN SORE THROAT Hydroxyzine Pamoate 25 mg 07/02/18 12:00 Vistaril - PO 07/08/18 12:00 Q6H PRN For Anxiety Ibuprofen 400 mg 07/02/18 12:00 Motrin - PO Q6H PRN PAIN LEVEL 1 - 3 Magnesium Citrate 300 ml 07/02/18 12:00 Citroma - PO Q48H PRN CONSTIPATION Magnesium Hydroxide 30 ml 07/02/18 12:00 Milk Of Magnesia - PO PRN PRN CONSTIPATION Melatonin 5 mg 07/02/18 12:00 Melatonin PO HS PRN INSOMNIA Methocarbamol 500 mg 07/02/18 12:00 Robaxin - PO 07/08/18 12:00 Q6H PRN MUSCLE SPASMS Nicotine Polacrilex 4 mg 07/02/18 12:00 Nicorette Gum - BUC Q2H PRN NICOTINE REPLACEMENT RX Multivit/Folic Acid/Iron 1 tab 07/03/18 10:00 07/04/18 10:21 Vitamins (Sjr) - PO 1 tab DAILY FATUMA Administration Sertraline HCl 50 mg 07/03/18 10:00 07/04/18 10:22 Zoloft - PO 50 mg DAILY FATUMA Administration Thiamine HCl 100 mg 07/02/18 22:00 07/03/18 22:29 Vitamin B1 - PO 100 mg HS FATUMA Administration Trazodone HCl 50 mg 07/03/18 22:00 07/03/18 22:29 Desyrel - PO 50 mg HS FATUMA Administration Current Side Effect: No Lab tests ordered: Yes Lab tests reviewed: Yes Provider note:: Patient requests to have Depakote ordered. Reports that she was taking Depakote prior to this current admission and the psychiatrist did not order it. Patient was seen on 07/03/[address] Clark and only Trazadone 50 mg and Zoloft 50 mg were ordered. External medication search shows script for 15 days sypply of Depakote 500 mg po BID filled on 06/09/18 at [facility]. Depoke 500 mg po BID is ordered and Valproic Acid plasma level requested on Total face to face time:: 15 Mental Status Exam - Mental Status Exam Alert and Oriented to: Time, Place, Person Cognitive Function: Fair Mood: Irritable Affect: Appropriate Patient Behavior: Cooperative Speech Pattern: Clear Voice Loudness: Normal Thought Process: Goal Oriented Thought Disorder: Not Present Hallucinations: Denies Suicidal Ideation: Denies Homicidal Ideation: Denies Insight/Judgement: Poor Sleep: Fair Appetite: Good Muscle strength/Tone: Normal Gait/Station: Normal Psychiatric Treatment Plan - Problem List (1) Depressive disorder Current Visit: Yes (2) Mood disorder Current Visit: Yes (3) Substance induced mood disorder Current Visit: No (4) Substance-induced sleep disorder Current Visit: Yes (5) Alcohol dependence with uncomplicated withdrawal Current Visit: Yes (6) Cocaine dependence Current Visit: Yes (7) Nicotine dependence Current Visit: Yes (8) HIV positive Current Visit: Yes (9) Peripheral neuropathic pain Current Visit: No Initial treatment plan: 1) Continue Depakote 500 mg po BID. 2) Continue inpatient detoxification
[2018-07-04] MEDS ORDERED: chlordiazePOXIDE HCL 10 MG CAPSULE PO PRN (17:00)
[2018-07-04] MEDS: chlordiazePOXIDE HCL 10 MG CAPSULE PO SCH ×2 (18:22→22:39)
[2018-07-04] MEDS: ACETAMINOPHEN 325 MG TABLET (FP) PO PRN (19:57)
[2018-07-04] MEDS: DIVALPROEX SODIUM 500 MG TABLET E.C. PO SCH (21:11)
[2018-07-04] MEDS: THIAMINE HCL 100 MG TABLET (FP) PO SCH (21:11)
[2018-07-04] MEDS: traZODone HCL 50 MG TABLET (FP) PO SCH (21:11)
[2018-07-04] MEDS ORDERED: DIVALPROEX SODIUM 250 MG TABLET E.C. PO SCH (22:00)
[2018-07-05] MEDS: chlordiazePOXIDE HCL 10 MG CAPSULE PO SCH ×2 (06:47→10:19)
[2018-07-05] MEDS: DIVALPROEX SODIUM 500 MG TABLET E.C. PO SCH (10:19)
[2018-07-05] MEDS: SERTRALINE HCL 50 MG TABLET (FP) PO SCH (10:19)
[2018-07-05] MEDS: PRENATAL VITAMINS W/ FOLIC ACID TABLET (FP) PO SCH (10:19)
[2018-07-05] MEDS: ACETAMINOPHEN 325 MG TABLET (FP) PO PRN (10:20)
--- NOTE | 2018-07-05 11:54 | PN ---
[facility] Progress Note (SOAP) Subjective: feeling better because i got my depakote sweats Objective: 07/05/18 11:54 Vital Signs Temperature 97.3 F L 07/05/18 09:40 Pulse Rate 76 07/05/18 09:40 Respiratory Rate 16 07/05/18 09:40 Blood Pressure 100/64 07/05/18 09:40 O2 Sat by Pulse Oximetry (%) aaox3 ambulating no acute distress Assessment: 07/05/18 11:54 withdrawal sx Plan: continue detox increase fluids d/c in am
[2018-07-05] MEDS ORDERED: hydrOXYzine PAMOATE 25 MG CAPSULE (FP) PO ONE (16:46)
[2018-07-05] MEDS ORDERED: chlordiazePOXIDE HCL 10 MG CAPSULE PO SCH (17:00)
[2018-07-05 17:50] VITALS: BP 108/74; PULSE 80; TEMP 97.9
--- NOTE | 2018-07-05 18:05 | DS ---
[facility] Detox Discharge Summary Admission Date: 07/02/18 Discharge Date: 07/05/18 - History Present History: Alcohol Dependence, Cocaine Dependence Additional Comments: Patient left AMA. Patient encourage to to continue detox but refuse for personal reasons. Patient advised on the risk of interrupting treatment. Denies suicidal / homicidal ideation. If worsening symptoms are present patient to go to the emergency room. Patient verbalizes understanding. - Physical Exam Results Vital Signs: Vital Signs Temperature 97.9 F 07/05/18 17:49 Pulse Rate 80 07/05/18 17:49 Respiratory Rate 18 07/05/18 17:49 Blood Pressure 108/74 07/05/18 17:49 O2 Sat by Pulse Oximetry (%) - Medication Discharge Medications: Ambulatory Orders Aspirin [Aspirin EC] 81 mg PO DAILY 03/23/18 Bictegrav/Emtricit/Tenofov Ala [Biktarvy 50-200-25 mg Tablet] 1 each PO DAILY Fluoxetine HCl [Prozac -] 20 mg PO DAILY 03/23/18 Gabapentin 300 mg PO BID 03/23/18 Sertraline HCl [Zoloft -] 25 mg PO DAILY 03/23/18 traZODone HCL [Desyrel -] 150 mg PO HS 03/23/18 - Diagnosis (1) Alcohol dependence with uncomplicated withdrawal Status: Acute (2) Cocaine dependence Status: Acute (3) Insomnia Status: Acute (4) Nicotine dependence Status: Acute (5) HIV positive Status: Chronic (6) Peripheral neuropathic pain Status: Chronic - AMA Did Patient Leave Against Medical Advice: Yes
== END 2018-07-05 18:30 | disposition left against medical advice (07) | DRG 894 ==
LOC: YASAS 09:53 → Y6N 12:52
PROVIDERS: ADMIT Surgery; ATTEND Surgery
PROC: HZ2ZZZZ Detoxification Services for Substance Abuse Treatment (ICD-10-PCS; principal; 2018-07-02)
DX: F10.230 Alcohol dependence with withdrawal, uncomplicated (principal); F14.20 Cocaine dependence, uncomplicated; F19.282 Other psychoactive substance dependence with psychoactive substance-induced sleep disorder; F17.210 Nicotine dependence, cigarettes, uncomplicated; F31.9 Bipolar disorder, unspecified; F19.24 Other psychoactive substance dependence with psychoactive substance-induced mood disorder; F39 Unspecified mood [affective] disorder; F20.9 Schizophrenia, unspecified; Z21 Asymptomatic human immunodeficiency virus [HIV] infection status; M79.2 Neuralgia and neuritis, unspecified; G47.00 Insomnia, unspecified; Z86.19 Personal history of other infectious and parasitic diseases; Z91.5 Personal history of self-harm; Z88.2 Allergy status to sulfonamides
CPT/HCPCS: 36415; 80053; 85027; 86593

== ENCOUNTER 2019-04-17 14:17 | Inpatient (IN) | payer OTHER ==
--- NOTE | 2019-04-17 16:12 | HP ---
CIWA Score - Admission Criteria OASAS Guidelines: Admission for Medically Managed Detox: Requires at least one of the followin. CIWA greater than 12 2. Seizures within the past 24 hours 3. Delirium tremens within the past 24 hours 4. Hallucinations within the past 24 hours 5. Acute intervention needed for co occurring medical disorder 6. Acute intervention needed for co occurring psychiatric disorder 7. Severe withdrawal that cannot be handled at a lower level of care (continued vomiting, continued diarrhea, abnormal vital signs) requiring intravenous medication and/or fluids 8. Admitting History and Physical - Admission History of Present Illness: The patient is a 69 yo f w/ PMH HIV, angina, anxiety/depression/ptsd/ Schizoaffective disorder who presents from [facility] after being discharged today after completing detox from [facility]. The patient wishes to enter rehab here. The patient states that she drank 3x 6 packs of beer and 2 pints daily since 21 years old. Last use 04/12 The patient denies every having a seizure in the past. The patient states that she smoked $100 of crack 3 times per week since the age of 39. Her last use was 04/12. The patient endorses smoking ~ 5 cigarettes/ day. The patient also has a history of angina, which she takes asa 81mg daily for. The patient takes Biktarvy daily for her HIV. She states that she follows regularly with her doctor at "[facility]" in the [place]. She states her viral load was 220 "a few months ago" and that her CD4 count was 600-700 a few months ago. The patient states that she is currently under treatment for anxiety/depression/ PTSD/Scizoaffective disorder by a psychiatrist at [facility]. She states that she takes zoloft and cogentin, but is unsure of what other medications she takes at home. This health underwriter contacted the patient's listed pharmacy, [facility] on the [place], and confirmed the medications on her home med list. All of these medications were picked up as recently as 04/13. Since it is unclear which medications she takes at this time, we will not restart her psych meds tonight. We will defer to psych eval in the AM. Will restart the patient's ASA, HAART, and folic acid tonight. We will hold the remainder of the medications for now until the patient's PCP can be contacted in the morning. History Source: Patient Limitations to Obtaining History: No Limitations - Past Medical History Cardiovascular: Yes: Other (angina) Infectious Disease: Yes: HIV Psych: Yes: Anxiety, Depression - Smoking History Smoking history: Current every day smoker Have you smoked in the past 12 months: Yes Aproximately how many cigarettes per day: 5 - Alcohol/Substance Use Hx Alcohol Use: Yes Admission [facility] Allergies/Adverse Reactions: Allergies Allergy/AdvReac Type Severity Reaction Status Date / Time fluconazole Allergy Severe Hives Verified 07/02/18 12:01 sulfamethoxazole Allergy Severe Hives Verified 07/02/18 12:01 [From Bactrim] trimethoprim [From Bactrim] Allergy Severe Hives Verified 07/02/18 12:01 - Ebola screening Have you traveled outside of the country in the last 21 days: No Have you had contact with anyone from an Ebola affected area: No Do you have a fever: No - Review of Systems Constitutional: No Symptoms Reported Respiratory: reports: No Symptoms reported Cardiac: reports: No Symptoms Reported GI: reports: No Symptoms Reported Neuro: reports: No Symptoms reported Psychiatric: reports: No Sypmtoms Reported, Judgement Intact, Mood/Affect Appropiate, Orientated x3 Patient History - Patient Medical History Hx Anemia: No Hx Asthma: No Hx Chronic Obstructive Pulmonary Disease (COPD): No Hx Cancer: No Hx Cardiac Disorders: Yes (Angina) Hx Congestive Heart Failure: No Hx Hypertension: No Hx Hypercholesterolemia: No Hx Pacemaker: No HX Cerebrovascular Accident: No Hx Seizures: No Hx Dementia: No Hx Diabetes: No Hx Gastrointestinal Disorders: No Hx Liver Disease: No Hx Genitourinary Disorders: No Hx Sexually Transmitted Disorders: Yes (syphillis in her 20's) Hx Renal Disease (ESRD): No Hx Thyroid Disease: No Hx Human Immunodeficiency Virus (HIV): Yes (since 1994 (off meds x 1 year)) Hx Hepatitis C: No Hx Depression: Yes (hospitalized 'years ago' at [facility]) Hx Suicide Attempt: Yes (3 times by cutting wrist) Hx Bipolar Disorder: Yes Hx Schizophrenia: Yes (hears voices) - Patient Surgical History Past Surgical History: Yes Hx Neurologic Surgery: No Hx Cataract Extraction: No Hx Cardiac Surgery: No Hx Lung Surgery: No Hx Breast Surgery: No Hx Breast Biopsy: No Hx Abdominal Surgery: No Hx Appendectomy: No Hx Cholecystectomy: No Hx Genitourinary Surgery: No Hx Section: No Hx Orthopedic Surgery: No Hx Hysterectomy: No Other Surgical History: tonsillectomy at age of [age] years old Anesthesia Reaction: No - PPD History Date: 03/25/18 - Smoking Cessation Smoking history: Current every day smoker Have you smoked in the past 12 months: Yes Aproximately how many cigarettes per day: 5 Cigars Per Day: 0 Hx Chewing Tobacco Use: No Initiated information on smoking cessation: Yes 'Breaking Loose' booklet given: 04/17/19 - Substances abused Alcohol Substance route: Oral Frequency: Daily Amount used: 1 pint liquor and 16oz beers Age of first use: 9 Date of last use: 04/12/19 Crack Substance route: Smoking Frequency: 3-6 times per week Amount used: $100 Age of first use: 30 Date of last use: 04/12/19 Admission Physical Exam BHS - Vital Signs Vital Signs: Vital Signs - 24 hr 04/17/19 14:48 Temperature 97.4 F L Pulse Rate 62 Respiratory 18 Rate Blood Pressure 112/75 - Physical General Appearance: Yes: No Apparent Distress, Nourished HEENTM: Yes: EOMI, Normal ENT Inspection, Normocephalic, DARIAN Respiratory: Yes: Chest Non-Tender, Normal Breath Sounds, No Respiratory Distress, Crackles (fine inspiratory crackles b/l) Neck: Yes: Trachea in good position Cardiology: Yes: Regular Rhythm, Regular Rate, S1, S2. No: JVD, Murmur, Gallop/ S3, Gallop/S4 Abdominal: Yes: Normal Bowel Sounds, Non Tender, Flat, Soft Neurological: Yes: chronometer adjuster II-XII NML intact, Fully Oriented, Alert, Motor Strength 5/5, Normal Mood/Affect, Normal Response Integumentary: Yes: Normal Color, Dry, Warm Breathalyzer - Breathalyzer Breathalyzer: 0 Urine Drug Screen - Test Device Lot number: [id number] Expiration date: 11/16/20 - Control Is test valid?: Yes - Results Drug screen NEGATIVE: No Urine drug screen results: BZO-Benzodiazepines Inpatient Rehab Admission - Rehab Decision to Admit Inpatient rehab admission?: Yes - Initial Determination Are CD services needed?: Yes Free of communicable disease: Yes Not in need of hospitalization: Yes - Rehab Admission Criteria Previous failed treatment: Yes Poor recovery environment: Yes Comorbidities: Yes Lacks judgement: Yes Patient is meeting Inpatient Rehab admission criteria:: Yes
[2019-04-17] MEDS ORDERED: P-EPHED 60MG/TRIPROLIDI 2.5MG TABLET PO PRN (16:39)
[2019-04-17] MEDS ORDERED: MAGNESIUM CITRATE 300 ML BOTTLE PO PRN (16:39)
[2019-04-17] MEDS ORDERED: LOPERAMIDE HCL 2 MG CAPSULE PO PRN (16:39)
[2019-04-17] MEDS ORDERED: MAG HYDROX/AL HYDROX/SIMETH 30 ML UNIT-DOSE CUP PO PRN (16:39)
[2019-04-17] MEDS ORDERED: MENTHOL/PHENOL 1 EACH UD MM PRN (16:39)
[2019-04-17] MEDS ORDERED: IBUPROFEN 400 MG TABLET (FP) PO PRN (16:39)
[2019-04-17] MEDS ORDERED: ACETAMINOPHEN 325 MG TABLET (FP) PO PRN (16:39)
[2019-04-17] MEDS ORDERED: guaiFENesin 200 MG/10 ML 10 ML UNIT-DOSE CUPS PO PRN (16:39)
--- NOTE | 2019-04-17 16:46 | PN ---
Teaching Attending Note Name of Resident: Giles Maya ATTENDING PHYSICIAN STATEMENT I saw and evaluated the patient. I reviewed the resident's note and discussed the case with the resident. I agree with the resident's findings and plan as documented. SUBJECTIVE: 69yo with h/o HIV, completed detox at [facility] and here for rehab OBJECTIVE: Vital Signs - 24 hr 04/17/19 14:48 Temperature 97.4 F L Pulse Rate 62 Respiratory 18 Rate Blood Pressure 112/75 alert and oriented ASSESSMENT AND PLAN: AUD- rehab services here HIV- will call pharmacy re compliance
[2019-04-17] MEDS ORDERED: traZODone HCL 100 MG TABLET (FP) PO PRN (17:28)
[2019-04-17] MEDS: THIAMINE HCL 100 MG TABLET (FP) PO SCH (21:08)
[2019-04-18] MEDS ORDERED: PT OWN MED DRAWER 7, Y5N ONE (09:39)
[2019-04-18] MEDS: ASPIRIN COATED 81 MG TABLET.EC PO SCH (09:53)
[2019-04-18] MEDS: PRENATAL VITAMINS W/ FOLIC ACID TABLET (FP) PO SCH (09:53)
[2019-04-18] MEDS: NICOTINE 14 MG/24 HOURS TOPICAL PATCH TD SCH (09:54)
[2019-04-18] MEDS: FOLIC ACID 1 MG TABLET (FP) PO SCH (09:54)
[2019-04-18] MEDS: BICTEGRAV/EMTRICIT/TENOFOV (BIKTARVY) 50-200-25 MG TABLET PO SCH (11:18)
[2019-04-18 12:09] LABS: HEMATOCRIT 37.6 % (32.4-45.2); HEMOGLOBIN 11.7 GM/dL (10.7-15.3); MCH 23.9 pg (25.7-33.7); MCHC 31.1 g/dl (32.0-36.0); MEAN PLT VOLUME 9.7 fl (7.5-11.1); PLATELET COUNT 297 K/MM3 (134-434); RBC 4.88 M/mm3 (3.60-5.2); RDW 15.2 % (11.6-15.6); WHITE BLOOD COUNT 4.4 K/mm3 (4.0-10.0)
[2019-04-18 12:19] LABS: ALBUMIN 3.6 g/dl (3.4-5.0); BILIRUBIN,TOTAL 0.2 mg/dL (0.2-1); BLOOD UREA NITROGEN 17.8 mg/dL (7-18); CALCIUM 9.6 mg/dL (8.5-10.1); CREATININE 0.9 mg/dL (0.55-1.3); POTASSIUM 4.3 mmol/L (3.5-5.1); TOT PROT 8.9 g/dl (6.4-8.2)
--- NOTE | 2019-04-18 13:08 | PN ---
[facility] Progress Note Note: Pt is a 69 y/o female with a hx of ARIANE admitted to rehab through [facility]. Pt reports she came to admissions from [facility] yesterday. Pt reports she has a primary care provider, Dr. Handley at [facility] on [address] [place] [address]. Denies c/p or any discomfort. However pt states she needs her Cogentin when he sees the psych. Pmhx:HIV+;Angina Psych Hx:Bipolar Disorder Vital Signs - 24 hr 04/17/19 04/18/19 04/18/19 14:48 04:59 07:03 Temperature 97.4 F L 97.7 F Pulse Rate 62 68 Respiratory 18 18 18 Rate Blood Pressure 112/75 105/64 Alert o x 3,denies s/h/i nad oob ambulating with steady gait A/P new rehab pt s/p detox Maintain safety f/u with psych consult.
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
[2019-04-18] MEDS: DIVALPROEX SODIUM 250 MG TABLET E.C. PO SCH (21:49)
[2019-04-18] MEDS: traZODone HCL 50 MG TABLET (FP) PO SCH (21:49)
[2019-04-18] MEDS: THIAMINE HCL 100 MG TABLET (FP) PO SCH (21:49)
[2019-04-18] MEDS: MAGNESIUM HYDROX 2400MG/30ML ORAL SUSPENSION 30 ML CUP PO PRN (21:50)
[2019-04-19] MEDS ORDERED: PT OWN MED DRAWER 7, Y5N ONE (08:33)
[2019-04-19] MEDS: BICTEGRAV/EMTRICIT/TENOFOV (BIKTARVY) 50-200-25 MG TABLET PO SCH (09:36)
[2019-04-19] MEDS: ASPIRIN COATED 81 MG TABLET.EC PO SCH (09:36)
[2019-04-19] MEDS: FOLIC ACID 1 MG TABLET (FP) PO SCH (09:36)
[2019-04-19] MEDS: DIVALPROEX SODIUM 250 MG TABLET E.C. PO SCH ×2 (09:36→21:29)
[2019-04-19] MEDS: NICOTINE 14 MG/24 HOURS TOPICAL PATCH TD SCH (09:37)
[2019-04-19] MEDS: SERTRALINE HCL 50 MG TABLET (FP) PO SCH (09:37)
[2019-04-19] MEDS: PRENATAL VITAMINS W/ FOLIC ACID TABLET (FP) PO SCH (09:37)
[2019-04-19 10:23] LABS: PH,URINE 6.5 (5.0-8.0); URINE APPEARANCE CLEAR; URINE BILIRUBIN NEGATIVE (NEGATIVE); URINE COLOR YELLOW; URINE GLUCOSE (UA) NEGATIVE (NEGATIVE); URINE KETONE NEGATIVE (NEGATIVE); URINE LEUK ESTERASE NEGATIVE (NEGATIVE); URINE NITRITE NEGATIVE (NEGATIVE); URINE PROTEIN NEGATIVE (NEGATIVE); URINE UROBILINOGEN 0.2 mg/dL (0.2-1.0)
[2019-04-19] MEDS: traZODone HCL 50 MG TABLET (FP) PO SCH (21:29)
[2019-04-19] MEDS: THIAMINE HCL 100 MG TABLET (FP) PO SCH (21:29)
[2019-04-19] MEDS: MAGNESIUM HYDROX 2400MG/30ML ORAL SUSPENSION 30 ML CUP PO PRN (21:31)
[2019-04-20] MEDS ORDERED: PT OWN MED DRAWER 7, Y5N ONE (08:35)
[2019-04-20] MEDS: FOLIC ACID 1 MG TABLET (FP) PO SCH (09:42)
[2019-04-20] MEDS: DIVALPROEX SODIUM 250 MG TABLET E.C. PO SCH ×2 (09:42→21:18)
[2019-04-20] MEDS: ASPIRIN COATED 81 MG TABLET.EC PO SCH (09:42)
[2019-04-20] MEDS: BICTEGRAV/EMTRICIT/TENOFOV (BIKTARVY) 50-200-25 MG TABLET PO SCH (09:42)
[2019-04-20] MEDS: PRENATAL VITAMINS W/ FOLIC ACID TABLET (FP) PO SCH (09:42)
[2019-04-20] MEDS: SERTRALINE HCL 50 MG TABLET (FP) PO SCH (09:42)
[2019-04-20] MEDS: NICOTINE 14 MG/24 HOURS TOPICAL PATCH TD SCH (09:43)
--- NOTE | 2019-04-20 15:28 | PN ---
S Progress Note Note: Psychiatric nurse practitioner note: Patient requesting to take zoloft 50mg in the evening. Will d/c morning dose of Zoloft 50mg and will order Zoloft 50mg HS.
[2019-04-20] MEDS: THIAMINE HCL 100 MG TABLET (FP) PO SCH (21:18)
[2019-04-20] MEDS: traZODone HCL 50 MG TABLET (FP) PO SCH (21:18)
[2019-04-20] MEDS: MELATONIN 5 MG TABLETS PO PRN (21:18)
[2019-04-21] MEDS ORDERED: PT OWN MED DRAWER 7, Y5N ONE (08:39)
[2019-04-21] MEDS: DIVALPROEX SODIUM 250 MG TABLET E.C. PO SCH ×2 (09:29→21:05)
[2019-04-21] MEDS: BICTEGRAV/EMTRICIT/TENOFOV (BIKTARVY) 50-200-25 MG TABLET PO SCH (09:29)
[2019-04-21] MEDS: PRENATAL VITAMINS W/ FOLIC ACID TABLET (FP) PO SCH (09:29)
[2019-04-21] MEDS: NICOTINE 14 MG/24 HOURS TOPICAL PATCH TD SCH (09:30)
[2019-04-21] MEDS: ASPIRIN COATED 81 MG TABLET.EC PO SCH (09:30)
[2019-04-21] MEDS: FOLIC ACID 1 MG TABLET (FP) PO SCH (09:30)
--- NOTE | 2019-04-21 15:24 | PN ---
[facility] Progress Note Note: Psychiatry Attending's note : Patient seen at nurse Lizbeth Hung' s request. Reason : request for inclusion of cogentin in medication regimen. Ms Valencia reports cogentin as effective in controlling " my involuntary leg movements." " This is what I was given at [facility]. I can tell you that the medication works." Psychoeducation provided in this session. Side effects/benefits + indications for cogentin : discussed. Interventions : Zoloft 50 mg po daily (patient wants drug back to daytime). Cogentin 0.5 mg po hs Psychiatry-Liaison will follow response. To be called for reconsult as needed.
[2019-04-21] MEDS ORDERED: SERTRALINE HCL 50 MG TABLET (FP) PO ONE (17:00)
[2019-04-21] MEDS: traZODone HCL 50 MG TABLET (FP) PO SCH (21:05)
[2019-04-21] MEDS: BENZTROPINE MESYLATE 1 MG TABLET (FP) PO SCH (21:05)
[2019-04-21] MEDS: ATORVASTATIN CA 20 MG TABLET (FP) PO SCH (21:07)
[2019-04-21] MEDS: THIAMINE HCL 100 MG TABLET (FP) PO SCH (21:07)
[2019-04-21] MEDS: MELATONIN 5 MG TABLETS PO PRN (21:08)
[2019-04-21] MEDS ORDERED: SERTRALINE HCL 50 MG TABLET (FP) PO SCH (22:00)
[2019-04-22] MEDS ORDERED: PT OWN MED DRAWER 7, Y5N ONE (09:20)
[2019-04-22] MEDS: NICOTINE 14 MG/24 HOURS TOPICAL PATCH TD SCH (09:38)
[2019-04-22] MEDS: SERTRALINE HCL 50 MG TABLET (FP) PO SCH (09:38)
[2019-04-22] MEDS: PRENATAL VITAMINS W/ FOLIC ACID TABLET (FP) PO SCH (09:38)
[2019-04-22] MEDS: ASPIRIN COATED 81 MG TABLET.EC PO SCH (09:38)
[2019-04-22] MEDS: DIVALPROEX SODIUM 250 MG TABLET E.C. PO SCH ×2 (09:38→21:57)
[2019-04-22] MEDS: FOLIC ACID 1 MG TABLET (FP) PO SCH (09:38)
[2019-04-22] MEDS: BICTEGRAV/EMTRICIT/TENOFOV (BIKTARVY) 50-200-25 MG TABLET PO SCH (09:39)
[2019-04-22] MEDS: ATORVASTATIN CA 20 MG TABLET (FP) PO SCH (21:57)
[2019-04-22] MEDS: traZODone HCL 50 MG TABLET (FP) PO SCH (21:57)
[2019-04-22] MEDS: THIAMINE HCL 100 MG TABLET (FP) PO SCH (21:57)
[2019-04-22] MEDS: BENZTROPINE MESYLATE 1 MG TABLET (FP) PO SCH (21:58)
[2019-04-23] MEDS: DIVALPROEX SODIUM 250 MG TABLET E.C. PO SCH ×2 (09:36→21:05)
[2019-04-23] MEDS: PRENATAL VITAMINS W/ FOLIC ACID TABLET (FP) PO SCH (09:36)
[2019-04-23] MEDS: FOLIC ACID 1 MG TABLET (FP) PO SCH (09:37)
[2019-04-23] MEDS: SERTRALINE HCL 50 MG TABLET (FP) PO SCH (09:37)
[2019-04-23] MEDS: ASPIRIN COATED 81 MG TABLET.EC PO SCH (09:37)
[2019-04-23] MEDS: NICOTINE 14 MG/24 HOURS TOPICAL PATCH TD SCH (09:37)
[2019-04-23] MEDS: BICTEGRAV/EMTRICIT/TENOFOV (BIKTARVY) 50-200-25 MG TABLET PO SCH (09:37)
[2019-04-23] MEDS: MAGNESIUM HYDROX 2400MG/30ML ORAL SUSPENSION 30 ML CUP PO PRN (12:52)
[2019-04-23] MEDS: ATORVASTATIN CA 20 MG TABLET (FP) PO SCH (21:05)
[2019-04-23] MEDS: traZODone HCL 50 MG TABLET (FP) PO SCH (21:05)
[2019-04-23] MEDS: THIAMINE HCL 100 MG TABLET (FP) PO SCH (21:06)
[2019-04-23] MEDS: BENZTROPINE MESYLATE 1 MG TABLET (FP) PO SCH (21:06)
[2019-04-24] MEDS ORDERED: PT OWN MED DRAWER 7, Y5N ONE (08:12)
[2019-04-24] MEDS: ASPIRIN COATED 81 MG TABLET.EC PO SCH (09:32)
[2019-04-24] MEDS: BICTEGRAV/EMTRICIT/TENOFOV (BIKTARVY) 50-200-25 MG TABLET PO SCH (09:32)
[2019-04-24] MEDS: DIVALPROEX SODIUM 250 MG TABLET E.C. PO SCH ×2 (09:32→21:39)
[2019-04-24] MEDS: FOLIC ACID 1 MG TABLET (FP) PO SCH (09:32)
[2019-04-24] MEDS: SERTRALINE HCL 50 MG TABLET (FP) PO SCH (09:32)
[2019-04-24] MEDS: PRENATAL VITAMINS W/ FOLIC ACID TABLET (FP) PO SCH (09:32)
[2019-04-24] MEDS: NICOTINE 14 MG/24 HOURS TOPICAL PATCH TD SCH (09:33)
[2019-04-24] MEDS: traZODone HCL 50 MG TABLET (FP) PO SCH (21:39)
[2019-04-24] MEDS: THIAMINE HCL 100 MG TABLET (FP) PO SCH (21:39)
[2019-04-24] MEDS: ATORVASTATIN CA 20 MG TABLET (FP) PO SCH (21:39)
[2019-04-24] MEDS: BENZTROPINE MESYLATE 1 MG TABLET (FP) PO SCH (21:39)
[2019-04-25] MEDS ORDERED: PT OWN MED DRAWER 7, Y5N ONE (08:56)
[2019-04-25] MEDS: ASPIRIN COATED 81 MG TABLET.EC PO SCH (09:34)
[2019-04-25] MEDS: DIVALPROEX SODIUM 250 MG TABLET E.C. PO SCH ×2 (09:34→21:27)
[2019-04-25] MEDS: FOLIC ACID 1 MG TABLET (FP) PO SCH (09:34)
[2019-04-25] MEDS: BICTEGRAV/EMTRICIT/TENOFOV (BIKTARVY) 50-200-25 MG TABLET PO SCH (09:34)
[2019-04-25] MEDS: PRENATAL VITAMINS W/ FOLIC ACID TABLET (FP) PO SCH (09:34)
[2019-04-25] MEDS: SERTRALINE HCL 50 MG TABLET (FP) PO SCH (09:34)
[2019-04-25] MEDS: traZODone HCL 50 MG TABLET (FP) PO SCH (21:27)
[2019-04-25] MEDS: ATORVASTATIN CA 20 MG TABLET (FP) PO SCH (21:27)
[2019-04-25] MEDS: BENZTROPINE MESYLATE 1 MG TABLET (FP) PO SCH (21:27)
[2019-04-25] MEDS: THIAMINE HCL 100 MG TABLET (FP) PO SCH (21:27)
[2019-04-25] MEDS: MELATONIN 5 MG TABLETS PO PRN (21:28)
[2019-04-25] MEDS: DOCUSATE SODIUM 100 MG CAPSULE (FP) PO SCH (21:28)
[2019-04-26] MEDS ORDERED: PT OWN MED DRAWER 7, Y5N ONE (08:30)
[2019-04-26] MEDS: BICTEGRAV/EMTRICIT/TENOFOV (BIKTARVY) 50-200-25 MG TABLET PO SCH (09:47)
[2019-04-26] MEDS: PRENATAL VITAMINS W/ FOLIC ACID TABLET (FP) PO SCH (09:47)
[2019-04-26] MEDS: DIVALPROEX SODIUM 250 MG TABLET E.C. PO SCH ×2 (09:47→21:27)
[2019-04-26] MEDS: FOLIC ACID 1 MG TABLET (FP) PO SCH (09:47)
[2019-04-26] MEDS: SERTRALINE HCL 50 MG TABLET (FP) PO SCH (09:48)
[2019-04-26] MEDS: ASPIRIN COATED 81 MG TABLET.EC PO SCH (09:48)
[2019-04-26] MEDS: DOCUSATE SODIUM 100 MG CAPSULE (FP) PO SCH (21:27)
[2019-04-26] MEDS: THIAMINE HCL 100 MG TABLET (FP) PO SCH (21:27)
[2019-04-26] MEDS: ATORVASTATIN CA 20 MG TABLET (FP) PO SCH (21:27)
[2019-04-26] MEDS: traZODone HCL 50 MG TABLET (FP) PO SCH (21:27)
[2019-04-26] MEDS: BENZTROPINE MESYLATE 1 MG TABLET (FP) PO SCH (21:29)
[2019-04-27] MEDS: BICTEGRAV/EMTRICIT/TENOFOV (BIKTARVY) 50-200-25 MG TABLET PO SCH (09:33)
[2019-04-27] MEDS: FOLIC ACID 1 MG TABLET (FP) PO SCH (09:34)
[2019-04-27] MEDS: ASPIRIN COATED 81 MG TABLET.EC PO SCH (09:34)
[2019-04-27] MEDS: PRENATAL VITAMINS W/ FOLIC ACID TABLET (FP) PO SCH (09:34)
[2019-04-27] MEDS: SERTRALINE HCL 50 MG TABLET (FP) PO SCH (09:34)
[2019-04-27] MEDS: DIVALPROEX SODIUM 250 MG TABLET E.C. PO SCH ×2 (09:34→21:12)
[2019-04-27] MEDS: ATORVASTATIN CA 20 MG TABLET (FP) PO SCH (21:12)
[2019-04-27] MEDS: THIAMINE HCL 100 MG TABLET (FP) PO SCH (21:12)
[2019-04-27] MEDS: traZODone HCL 50 MG TABLET (FP) PO SCH (21:12)
[2019-04-27] MEDS: DOCUSATE SODIUM 100 MG CAPSULE (FP) PO SCH (21:12)
[2019-04-27] MEDS: BENZTROPINE MESYLATE 1 MG TABLET (FP) PO SCH (21:13)
[2019-04-28] MEDS ORDERED: PT OWN MED DRAWER 7, Y5N ONE (08:33)
[2019-04-28] MEDS: ASPIRIN COATED 81 MG TABLET.EC PO SCH (09:48)
[2019-04-28] MEDS: SERTRALINE HCL 50 MG TABLET (FP) PO SCH (09:48)
[2019-04-28] MEDS: PRENATAL VITAMINS W/ FOLIC ACID TABLET (FP) PO SCH (09:48)
[2019-04-28] MEDS: DIVALPROEX SODIUM 250 MG TABLET E.C. PO SCH ×2 (09:48→21:06)
[2019-04-28] MEDS: FOLIC ACID 1 MG TABLET (FP) PO SCH (09:48)
[2019-04-28] MEDS: BICTEGRAV/EMTRICIT/TENOFOV (BIKTARVY) 50-200-25 MG TABLET PO SCH (09:48)
[2019-04-28] MEDS: MAGNESIUM HYDROX 2400MG/30ML ORAL SUSPENSION 30 ML CUP PO PRN (14:26)
[2019-04-28] MEDS: traZODone HCL 50 MG TABLET (FP) PO SCH (21:06)
[2019-04-28] MEDS: BENZTROPINE MESYLATE 1 MG TABLET (FP) PO SCH (21:06)
[2019-04-28] MEDS: THIAMINE HCL 100 MG TABLET (FP) PO SCH (21:06)
[2019-04-28] MEDS: DOCUSATE SODIUM 100 MG CAPSULE (FP) PO SCH (21:06)
[2019-04-28] MEDS: ATORVASTATIN CA 20 MG TABLET (FP) PO SCH (21:06)
[2019-04-29] MEDS ORDERED: PT OWN MED DRAWER 7, Y5N ONE (08:08)
[2019-04-29] MEDS: SERTRALINE HCL 50 MG TABLET (FP) PO SCH (09:30)
[2019-04-29] MEDS: DIVALPROEX SODIUM 250 MG TABLET E.C. PO SCH ×2 (09:30→21:40)
[2019-04-29] MEDS: PRENATAL VITAMINS W/ FOLIC ACID TABLET (FP) PO SCH (09:30)
[2019-04-29] MEDS: FOLIC ACID 1 MG TABLET (FP) PO SCH (09:30)
[2019-04-29] MEDS: ASPIRIN COATED 81 MG TABLET.EC PO SCH (09:30)
[2019-04-29] MEDS: BICTEGRAV/EMTRICIT/TENOFOV (BIKTARVY) 50-200-25 MG TABLET PO SCH (11:00)
[2019-04-29] MEDS: ATORVASTATIN CA 20 MG TABLET (FP) PO SCH (21:40)
[2019-04-29] MEDS: traZODone HCL 50 MG TABLET (FP) PO SCH (21:40)
[2019-04-29] MEDS: DOCUSATE SODIUM 100 MG CAPSULE (FP) PO SCH (21:40)
[2019-04-29] MEDS: THIAMINE HCL 100 MG TABLET (FP) PO SCH (21:40)
[2019-04-29] MEDS: MELATONIN 5 MG TABLETS PO PRN (21:40)
[2019-04-29] MEDS: BENZTROPINE MESYLATE 1 MG TABLET (FP) PO SCH (21:41)
[2019-04-30] MEDS ORDERED: PT OWN MED DRAWER 7, Y5N ONE (08:02)
[2019-04-30] MEDS: ASPIRIN COATED 81 MG TABLET.EC PO SCH (09:35)
[2019-04-30] MEDS: BICTEGRAV/EMTRICIT/TENOFOV (BIKTARVY) 50-200-25 MG TABLET PO SCH (09:35)
[2019-04-30] MEDS: DIVALPROEX SODIUM 250 MG TABLET E.C. PO SCH ×2 (09:35→21:44)
[2019-04-30] MEDS: PRENATAL VITAMINS W/ FOLIC ACID TABLET (FP) PO SCH (09:36)
[2019-04-30] MEDS: SERTRALINE HCL 50 MG TABLET (FP) PO SCH (09:36)
[2019-04-30] MEDS: FOLIC ACID 1 MG TABLET (FP) PO SCH (09:36)
--- NOTE | 2019-04-30 11:59 | PN ---
[facility] Progress Note Note: Patient is scheduled for discharge tomorrow. Scripts for 30 days supply of medications(Zoloft 50 mg/day, Depakote 250 mg/bid, Trazadone 50 mg/hs, Cogentin 0.5 mg/day0 will be electronically transmitted to [facility] at [address] [place] [id number]
[2019-04-30] MEDS: THIAMINE HCL 100 MG TABLET (FP) PO SCH (21:44)
[2019-04-30] MEDS: ATORVASTATIN CA 20 MG TABLET (FP) PO SCH (21:44)
[2019-04-30] MEDS: BENZTROPINE MESYLATE 1 MG TABLET (FP) PO SCH (21:44)
[2019-04-30] MEDS: DOCUSATE SODIUM 100 MG CAPSULE (FP) PO SCH (21:44)
[2019-04-30] MEDS: traZODone HCL 50 MG TABLET (FP) PO SCH (21:44)
[2019-05-01 07:14] VITALS: BP 117/76; PULSE 65; TEMP 97.7
[2019-05-01] MEDS ORDERED: PT OWN MED DRAWER 7, Y5N ONE (08:26)
--- NOTE | 2019-05-01 08:52 | DS ---
[facility] Rehab Discharge Summary - [facility] Rehab Discharge Summary Admission Date: 04/17/19 Discharge Date: 05/01/19 - Discharge Physical Exam Vital Signs: Vital Signs Temperature 97.7 F 05/01/19 07:13 Pulse Rate 65 05/01/19 07:13 Respiratory Rate 18 05/01/19 07:13 Blood Pressure 117/76 05/01/19 07:13 O2 Sat by Pulse Oximetry (%) - Medication Discharge Medications: Ambulatory Orders Aspirin [Aspirin EC] 81 mg PO DAILY 03/23/18 Bictegrav/Emtricit/Tenofov Ala [Biktarvy 50-200-25 mg Tablet] 1 each PO DAILY Sertraline HCl [Zoloft -] 50 mg PO DAILY 03/23/18 Atorvastatin Ca [Lipitor] 20 mg PO HS 04/17/19 Benztropine Mesylate [Cogentin -] 1 mg PO BID 04/17/19 Divalproex Sodium [Depakote] 250 mg PO Q12H 04/17/19 Folic Acid - 1 mg PO DAILY 04/17/19 Multivitamin [Multiple Vitamins] 1 tab PO DAILY 04/17/19 Prazosin HCl 1 mg PO DAILY 04/17/19 Thiamine HCl [Vitamin B-1] 100 mg PO DAILY 04/17/19 Topiramate [Topamax] 25 mg PO DAILY 04/17/19 traZODone HCL [Trazodone HCl] 100 mg PO HS 04/17/19 Benztropine Mesylate [Cogentin -] 0.5 mg PO HS #14 tablet 04/30/19 Divalproex [Depakote -] 250 mg PO BID #60 tablet.ec 04/30/19 Sertraline HCl [Zoloft -] 50 mg PO DAILY #30 tablet 04/30/19 traZODone HCL [Desyrel -] 50 mg PO HS #30 tablet 04/30/19 - Discharge Instructions Diet, activity, other medical instructions: Diet: Activity: Other medical instructions:
[2019-05-01] MEDS: PRENATAL VITAMINS W/ FOLIC ACID TABLET (FP) PO SCH (09:06)
[2019-05-01] MEDS: FOLIC ACID 1 MG TABLET (FP) PO SCH (09:06)
[2019-05-01] MEDS: DIVALPROEX SODIUM 250 MG TABLET E.C. PO SCH (09:06)
[2019-05-01] MEDS: SERTRALINE HCL 50 MG TABLET (FP) PO SCH (09:06)
[2019-05-01] MEDS: ASPIRIN COATED 81 MG TABLET.EC PO SCH (09:06)
[2019-05-01] MEDS: BICTEGRAV/EMTRICIT/TENOFOV (BIKTARVY) 50-200-25 MG TABLET PO SCH (09:06)
== END 2019-05-01 09:24 | disposition home or self-care (01) | DRG 895 ==
LOC: YASAS 14:17 → Y3E 17:02
PROVIDERS: ADMIT Neuromusculoskeletal Medicine & OMM; ATTEND Neuromusculoskeletal Medicine & OMM
PROC: HZ42ZZZ Group Counseling for Substance Abuse Treatment, Cognitive-Behavioral (ICD-10-PCS; principal; 2019-04-17)
DX: F10.20 Alcohol dependence, uncomplicated (principal); F17.210 Nicotine dependence, cigarettes, uncomplicated; Z21 Asymptomatic human immunodeficiency virus [HIV] infection status; G47.00 Insomnia, unspecified; Z87.42 Personal history of other diseases of the female genital tract; Z88.2 Allergy status to sulfonamides; Z88.8 Allergy status to other drugs, medicaments and biological substances; Z91.5 Personal history of self-harm
CPT/HCPCS: 36415; 80053; 80164; 81003; 81025; 85027; 86593